=== PATIENT | female | born 1995 | race Two or more races ===

== ENCOUNTER 2017-01-12 11:52 | Observation (INO) | payer SELFPAY ==
[2017-01-12] MEDS ORDERED: IV RINGERS,LACTATED 1000ML 1,000 ML IV SCH (12:47)
== END 2017-01-12 15:30 | disposition home or self-care (01) ==
LOC: 3 SO LND 11:52
PROVIDERS: ADMIT Obstetrics & Gynecology; ATTEND Obstetrics & Gynecology
DX: O62.9 Abnormality of forces of labor, unspecified (principal); O26.893 Other specified pregnancy related conditions, third trimester; R10.2 Pelvic and perineal pain; Z3A.36 36 weeks gestation of pregnancy
CPT/HCPCS: G0378; G0379